=== PATIENT | female | born 1990 | race Caucasian/White ===

== ENCOUNTER 2017-07-05 11:15 | Inpatient (IN) | payer OTHER ==
[~2017-07-05 11:15] MED LIST: ELECTROLYTE-148 SOLN 500 ML IV SCH
[2017-07-05] MEDS ORDERED: ELECTROLYTE-148 SOLN 1,000 ML IV SCH ×2 (11:45→14:30)
[2017-07-05] MEDS ORDERED: TUBERCULIN PPD 5 TU/0.1ML SYRINGE (IN PATIENT USE ONLY) ID ONE (11:52)
[2017-07-05 12:13] VITALS: BMI 38.8
[2017-07-05 12:32] LABS: INR 0.94 (0.82-1.09); PROTHROMBIN TIME (PATIENT) 10.6 SEC (9.98-11.88)
[2017-07-05 12:33] LABS: MCH 21.9 pg (25.7-33.7); MCHC 30.9 g/dl (32.0-36.0); MEAN CELL VOLUME 70.8 fl (80-96); RDW 17.4 % (11.6-15.6); WHITE BLOOD COUNT 11.4 K/mm3 (4.0-10.0)
[2017-07-05 12:34] LABS: ACTIVATED PTT 25.7 SECONDS (26.9-34.4); BASOPHIL 0.2 % (0-2.0); EOSINOPHIL 1.2 % (0-4.5); MEAN PLT VOLUME 9.2 fl (7.5-11.1); NEUTROPHILS 71.7 % (42.8-82.8); PLATELET COUNT 361 K/MM3 (134-434)
[2017-07-05 12:39] LABS: ANION GAP 8 (8-16); CALCIUM 8.6 mg/dL (8.5-10.1); CO2 23 mmol/L (21-32); CREATININE 0.5 mg/dL (0.55-1.02); GLUCOSE,RANDOM 68 mg/dL (74-106)
[2017-07-05] MEDS ORDERED: FENTANYL/BUPIVACAINE/NS/PF - PCEA - 50 ML DISP.SYRIN EP SCH (13:15)
--- NOTE | 2017-07-05 14:10 | HP ---
Past Medical History - Primary Care Physician PCP:: Fatou Baldwin - Admission Chief Complaint: Labor History of Present Illness: 27 yo EDC 07/07/17 EGA 39.5 week with c/o labor. 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) Pulmonary: Yes: Asthma ...: 6 ...Para: 2 ...Term: 2 ...: 0 ...Spon : 3 ...Induced : 0 ...Multiple Gestation: 0 ...EDC by Sono: 07/07/17 Additional Medical History: Hx of chylamdia treated and varicose veins - Past Surgical History Past Surgical History: Yes: None Hx Myomectomy: No Hx Transabdominal Cerclage: No - Smoking History Smoking history: Never smoked Have you smoked in the past 12 months: No - Alcohol/Substance Use Hx Alcohol Use: No - Social History Usual Living Arrangement: Yes: With Spouse History of Recent Travel: No Home Medications - Allergies Allergies/Adverse Reactions: Allergies Allergy/AdvReac Type Severity Reaction Status Date / Time orange Allergy Severe Swelling Verified 07/05/17 11:55 - Home Medications Home Medications: Ambulatory Orders Ferrous Gluconate [Iron] 256 mg PO DAILY 07/05/17 Vit No.130/Iron/FA [ Vitamins] 1 each PO DAILY 07/05/17 Review of Systems - Review of Systems Constitutional: reports: No Symptoms Eyes: reports: No Symptoms HENT: reports: No Symptoms Neck: reports: No Symptoms Cardiovascular: reports: No Symptoms Respiratory: reports: No Symptoms Gastrointestinal: reports: Abdominal Pain Genitourinary: reports: No Symptoms Breasts: reports: No Symptoms Reported Musculoskeletal: reports: No Symptoms Integumentary: reports: No Symptoms Neurological: reports: No Symptoms Endocrine: reports: No Symptoms Hematology/Lymphatic: reports: No Symptoms Psychiatric: reports: No Symptoms Physical Exam - Maternity Vital Signs: Vital Signs Temperature Pulse Rate 79 07/05/17 12:00 Respiratory Rate 20 07/05/17 12:00 Blood Pressure 129/84 07/05/17 12:00 O2 Sat by Pulse Oximetry (%) Constitutional: Yes: Well Nourished, No Distress, Calm Neck: Yes: WNL Cardiovascular: Yes: WNL Lungs: Clear to auscultation Breast(s): Yes: WNL - Abdominal Exam/OB Fundal Height: 40 Number of Fetuses: Single Presentation: Vertex Contractions: Yes Regularity: Regular Intensity: Moderate Monitor Mode: External Category: I Accelerations: Non-Uniform Decelerations: None - Vaginal Exam/OB Dilatation (cm): 5-6 Effacement (%): 100 Amniotic Membrane Status: Intact Presentation: Vertex/Position Station: -1 - Physical Exam Musculoskeletal: Yes: WNL Extremities: Yes: WNL Edema: No - Labs Lab Results: CBC, BMP 07/05/17 11:40 07/05/17 11:40 Hemorrhage Risk Assessment - Risk Factors Risk Score: 0 Risk Level: Low Risk Problem List - Problems (1) Labor established Assessment/Plan: established labor Code(s): [id number] - Assessment/Plan IUP at 39.5 week GBS neg Cat 1 hx of Flores's Palsy active labor Plan admit to LD epidural given continue observation
--- NOTE | 2017-07-05 16:50 | PN ---
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
[2017-07-05] MEDS ORDERED: BENZOCAINE 28 GM HEMORRHOIDAL OINTMENT TP PRN (16:51)
[2017-07-05] MEDS ORDERED: WITCH HAZEL 50% (TUCKS) 40 PAD/JAR PAD TP PRN (16:51)
[2017-07-05] MEDS ORDERED: BISACODYL 10 MG SUPP.RECT RC PRN (16:51)
[2017-07-05] MEDS ORDERED: METHYLERGONOVINE MALEATE 0.2 MG/1 ML AMP IM PRN (16:51)
[2017-07-05] MEDS ORDERED: BENZOCAINE 20% 57 GM BOTTLE TP PRN (16:51)
[2017-07-05] MEDS ORDERED: OXYTOCIN 20 UNITS in 0.9% NS 20 UNIT/1,000 ML INFUS.BAG IV SCH (17:00)
[2017-07-05] MEDS: FERROUS SO4 325 MG TABLET (FP) PO SCH (18:26)
[2017-07-05] MEDS: IBUPROFEN 600 MG TABLET (FP) PO PRN (18:43)
[2017-07-05] MEDS: ACETAMINOPHEN 325 MG TABLET (FP) PO PRN (18:44)
[2017-07-06] MEDS: IBUPROFEN 600 MG TABLET (FP) PO PRN ×2 (03:40→18:23)
[2017-07-06] MEDS: ACETAMINOPHEN 325 MG TABLET (FP) PO PRN ×2 (03:40→18:23)
[2017-07-06 08:40] LABS: BASOPHIL 0.3 % (0-2.0); EOSINOPHIL 1.6 % (0-4.5); MCH 21.7 pg (25.7-33.7); MCHC 30.5 g/dl (32.0-36.0); MEAN CELL VOLUME 71.2 fl (80-96); MEAN PLT VOLUME 8.8 fl (7.5-11.1); NEUTROPHILS 69.1 % (42.8-82.8); PLATELET COUNT 307 K/MM3 (134-434); RDW 17.5 % (11.6-15.6); WHITE BLOOD COUNT 13.5 K/mm3 (4.0-10.0)
--- NOTE | 2017-07-06 09:20 | PN ---
Post Note - Post Date of Delivery: 07/05/17 Post Day: 1 Vital Signs: Vital Signs - 24 hr 07/05/17 07/05/17 07/05/17 12:00 13:20 13:25 Temperature Pulse Rate 79 90 89 Respiratory 20 17 17 Rate Blood Pressure 129/84 134/83 130/87 O2 Sat by Pulse 100 100 Oximetry (%) 07/05/17 07/05/17 07/05/17 13:30 13:45 14:00 Temperature 98.0 F Pulse Rate 84 90 102 H Respiratory 18 17 17 Rate Blood Pressure 127/81 135/91 95/29 O2 Sat by Pulse Oximetry (%) 07/05/17 07/05/17 07/05/17 14:15 14:30 14:45 Temperature Pulse Rate 78 84 95 H Respiratory 17 17 17 Rate Blood Pressure 118/76 122/69 124/77 O2 Sat by Pulse Oximetry (%) 07/05/17 07/05/17 07/05/17 15:00 15:15 15:30 Temperature Pulse Rate 85 91 H 94 H Respiratory 17 17 17 Rate Blood Pressure 117/79 126/72 133/96 O2 Sat by Pulse Oximetry (%) 07/05/17 07/05/17 07/05/17 15:45 16:00 16:15 Temperature Pulse Rate 104 H 99 H 111 H Respiratory 18 17 17 Rate Blood Pressure 136/93 139/86 110/62 O2 Sat by Pulse Oximetry (%) 07/05/17 07/05/17 07/05/17 16:45 17:00 17:15 Temperature 98.4 F Pulse Rate 109 H 95 H 88 Respiratory 18 18 18 Rate Blood Pressure 127/74 97/65 124/78 O2 Sat by Pulse Oximetry (%) 07/05/17 07/05/17 07/05/17 17:30 18:00 20:00 Temperature 99.2 F 98.7 F Pulse Rate 88 89 84 Respiratory 20 20 20 Rate Blood Pressure 124/78 142/81 141/74 O2 Sat by Pulse Oximetry (%) 07/06/17 07/06/17 01:27 05:48 Temperature 97.7 F 98.0 F Pulse Rate 92 H 93 H Respiratory 20 20 Rate Blood Pressure 134/79 135/79 O2 Sat by Pulse Oximetry (%) Labs: Laboratory Results - last 24 hr 07/05/17 07/05/17 07/05/17 11:40 11:40 11:40 WBC 11.4 H RBC 4.28 Hgb 9.4 L Hct 30.3 L MCV 70.8 L MCH 21.9 L MCHC 30.9 L RDW 17.4 H Plt Count 361 MPV 9.2 Neutrophils % 71.7 Lymphocytes % 18.2 Monocytes % 8.7 Eosinophils % 1.2 Basophils % 0.2 Retic Count PT with INR 10.60 INR 0.94 PTT (Actin FS) 25.7 L Sodium 139 Potassium 4.5 Chloride 108 H Carbon Dioxide 23 Anion Gap 8 BUN 5 L Creatinine 0.5 L Random Glucose 68 L Uric Acid Calcium 8.6 GGT AST ALT RPR Titer Blood Type Antibody Screen 07/05/17 07/05/17 07/05/17 11:40 11:40 11:40 WBC RBC Hgb Hct MCV MCH MCHC RDW Plt Count MPV Neutrophils % Lymphocytes % Monocytes % Eosinophils % Basophils % Retic Count PT with INR INR PTT (Actin FS) Sodium Potassium Chloride Carbon Dioxide Anion Gap BUN Creatinine Random Glucose Uric Acid Calcium GGT AST ALT RPR Titer Nonreactive Blood Type A POSITIVE A POSITIVE Antibody Screen Negative 07/05/17 07/05/17 07/06/17 17:00 17:00 08:00 WBC 13.5 H RBC 4.00 Hgb 8.7 L Hct 28.4 L MCV 71.2 L MCH 21.7 L MCHC 30.5 L RDW 17.5 H Plt Count 307 MPV 8.8 Neutrophils % 69.1 Lymphocytes % 22.6 D Monocytes % 6.4 Eosinophils % 1.6 Basophils % 0.3 Retic Count 1.71 H PT with INR INR PTT (Actin FS) Sodium Potassium Chloride Carbon Dioxide Anion Gap BUN Creatinine Random Glucose Uric Acid 4.0 Calcium GGT 15 AST 11 L ALT 10 L RPR Titer Blood Type Antibody Screen - Subjective Subjective: No Complaints - Objective Afebrile: Yes Breast: Not engorged Abdomen: Soft, Non-tender Uterus: Fundus firm Vagina: Scant lochia Extremities: Non-tender - Assessment/Plan (1) Labor established Assessment: S/P Normal Plan: Routine Care
[2017-07-06] MEDS: FERROUS SO4 325 MG TABLET (FP) PO SCH ×3 (09:23→16:57)
[2017-07-06] MEDS: PRENATAL VITAMINS W/ FOLIC ACID TABLET (FP) PO SCH (09:23)
[2017-07-07] MEDS: SENNOSIDES/DOCUSATE COMBO (SENNA PLUS) TABLET (UD) PO PRN ×2 (04:10→11:54)
[2017-07-07] MEDS: IBUPROFEN 600 MG TABLET (FP) PO PRN (04:11)
[2017-07-07] MEDS: ACETAMINOPHEN 325 MG TABLET (FP) PO PRN (04:11)
[2017-07-07] MEDS: FERROUS SO4 325 MG TABLET (FP) PO SCH ×2 (08:14→11:53)
[2017-07-07] MEDS: PRENATAL VITAMINS W/ FOLIC ACID TABLET (FP) PO SCH (09:10)
[2017-07-07 10:37] VITALS: BP 128/84; PULSE 83; TEMP 97.6
--- NOTE | 2017-07-07 10:49 | PN ---
Post Note - Post Date of Delivery: 07/05/17 Post Day: 2 Vital Signs: Vital Signs - 24 hr 07/06/17 07/07/17 21:15 10:00 Temperature 98.4 F 97.6 F Pulse Rate 84 83 Respiratory 20 18 Rate Blood Pressure 122/91 128/84 Labs: Laboratory Results - last 24 hr 07/05/17 17:00 Haptoglobin 188 - Subjective Subjective: No Complaints - Objective Breast: Not engorged Abdomen: Soft, Non-tender Uterus: Fundus firm Vagina: Scant lochia Extremities: Non-tender - Assessment/Plan (1) Labor established Assessment: S/P Normal Plan: Routine Care
--- NOTE | 2017-07-07 10:50 | DS ---
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 Vital Signs: Vital Signs Temperature 97.6 F 07/07/17 10:00 Pulse Rate 83 07/07/17 10:00 Respiratory Rate 18 07/07/17 10:00 Blood Pressure 128/84 07/07/17 10:00 O2 Sat by Pulse Oximetry (%) 100 07/05/17 13:25 Constitutional: Yes: Well Nourished, No Distress Neck: Yes: WNL Cardiovascular: Yes: WNL Respiratory: Yes: WNL Gastrointestinal: Yes: WNL, Normal Bowel Sounds, Soft ....Post : Yes: Uterus firm, Uterus non-tender Breast(s): Yes: WNL Musculoskeletal: Yes: WNL Extremities: Yes: WNL Integumentary: Yes: WNL Neurological: Yes: WNL, Alert, Oriented Labs: CBC, BMP 07/06/17 08:00 07/05/17 11:40 Delivery - Delivery Vaginal Delivery: No Problems Type of Anesthesia: Epidural Episiotomy/Laceration: None EBL (cc): 300 Delivery, Single - Stages of Labor Date 1st Stage Initiatied: 07/05/17 Time 1st Stage Initiated: 09:00 Date 2nd Stage Initiated: 07/05/17 Time 2nd Stage Initiated: 16:28 Date of Delivery: 07/05/17 Time of Delivery: 16:35 Time Placenta Delivered: 16:37 Placenta: Yes: Manual Removal - 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 You may walk unlimited jacqueline of and climb stairs. You may resume driving the car when you feel safe and comfortable behind the wheel. No sexual activity as instructed. Wound care If you have a bandage, leave it on, and keep dry for 48-72 hours. After that time discard the outer bandage. If they are tapes on the skin under the out of bandage leave them in place. They will peel off in the next 7 to 10 days. Do Not Peel them off. You may shower the day after surgery. If there are tapes present on the skin, you may shower over them. Diet There are no dietary restrictions. Eat healthy, high-fiber foods. Drink 6 to 8 glasses of liquid each day. This will assist in keeping your bowels are regular. Pain management You may take Tylenol or acetaminophen or Ibuprofen (for example, Motrin, Advil etc.) from my pain prescription medication is ordered should be taken as prescribed for moderate to severe pain. Call MD for any of the following: Severe pain not relieved by medication Fever of 101 or higher Excessive bleeding or drainage on dressing Inability to urinate Referrals: Fatou Baldwin MD [Staff Physician] - 1 Month (6 weeks) Disposition: HOME - Home Medications Comprehensive Discharge Medication List: Ambulatory Orders Ferrous Gluconate [Iron] 256 mg PO DAILY 07/05/17 Vit No.130/Iron/FA [ Vitamins] 1 each PO DAILY 07/05/17 Ibuprofen [Motrin -] 600 mg PO QID #28 tablet 07/06/17
== END 2017-07-07 13:30 | disposition home or self-care (01) | DRG 560 ==
LOC: JLDR 11:15 → J3W 18:00
PROVIDERS: ADMIT Obstetrics & Gynecology; ATTEND Obstetrics & Gynecology
PROC: 10E0XZZ Delivery of Products of Conception, External Approach (ICD-10-PCS; principal; 2017-07-05)
DX: O75.89 Other specified complications of labor and delivery (principal); J45.909 Unspecified asthma, uncomplicated; G51.0 Bell's palsy; Z3A.39 39 weeks gestation of pregnancy; Z37.0 Single live birth
CPT/HCPCS: 36415; 59409; 80048; 82977; 83010; 84450; 84460; 84550; 85025; 85044; 85610; 85730; 86593; 86850; 86900; 86901

== ENCOUNTER 2023-06-28 23:55 | Inpatient (IN) | payer OTHER ==
[2023-06-29] MEDS ORDERED: SODIUM CHLORIDE 1,000 ML IV STA (00:12)
[2023-06-29] MEDS ORDERED: ONDANSETRON 4 MG/2 ML VIAL IVPUSH ONE ×2 (00:12→03:37)
[2023-06-29] MEDS ORDERED: ONDANSETRON 4 MG/2 ML VIAL ONE ×2 (01:13→03:50)
[2023-06-29 01:39] LABS: BASO % 0.3 % (0-2.0); EOS % 0.5 % (0-4.5); HEMATOCRIT 32.1 % (32.4-45.2); HEMOGLOBIN 10.8 GM/dL (10.7-15.3); LYMPH % 14.1 % (8-40); MCH 29.2 pg (25.7-33.7); MCHC 33.6 g/dl (32.0-36.0); MEAN CELL VOLUME 87.1 fl (80-96); MEAN PLT VOLUME 8.9 fl (7.5-11.1); MONO % 8.6 % (3.8-10.2); NEUT % 76.5 % (42.8-82.8); PLATELET COUNT 338 10^3/uL (134-434); RBC 3.69 M/mm3 (3.60-5.2); RDW 14.2 % (11.6-15.6); WHITE BLOOD COUNT 9.6 K/mm3 (4.0-10.0)
[2023-06-29 02:07] LABS: CHLORIDE 108 mmol/L (98-107); SODIUM 134 mmol/L (136-145)
[2023-06-29 02:10] LABS: BLOOD UREA NITROGEN 4.2 mg/dL (7-18); CALCIUM 8.3 mg/dL (8.5-10.1); GLUCOSE,RANDOM 82 mg/dL (74-106); LIPASE 68 U/L (73-393)
[2023-06-29 02:13] LABS: CREATININE 0.6 mg/dL (0.55-1.3); SGOT/AST 55 U/L (15-37)
[2023-06-29 02:14] LABS: BILIRUBIN,TOTAL 0.4 mg/dL (0.2-1); TOT PROT 6.9 g/dl (6.4-8.2)
[2023-06-29 02:16] LABS: ALK PHOS 55 U/L (45-117)
[2023-06-29 02:28] LABS: ANION GAP 2 mmol/L (4-13); CO2 24 mmol/L (21-32); POTASSIUM > 10.0 mmol/L (3.5-5.1); SGPT/ALT 16 U/L (13-61)
[2023-06-29 02:58] LABS: HCG,QUALITATIVE URINE Positive
[2023-06-29 03:03] LABS: EPI CELLS 36 /uL (0-25.1); HYALINE CASTS 0 /uL (0-3.1); PH,URINE 8.5 (5.0-8.0); URINE APPEARANCE CLEAR; URINE BACTERIA 115 /uL (0-1359); URINE BILIRUBIN NEGATIVE (NEGATIVE); URINE COLOR YELLOW; URINE GLUCOSE (UA) NEGATIVE (NEGATIVE); URINE KETONE 1+ (NEGATIVE); URINE LEUK ESTERASE TRACE (NEGATIVE); URINE NITRITE NEGATIVE (NEGATIVE); URINE PROTEIN NEGATIVE (NEGATIVE); URINE RBC 5 /uL (0-23.9); URINE WBC 6 /uL (0-25.8)
[2023-06-29 04:02] LABS: POTASSIUM 3.6 mmol/L (3.5-5.1)
[2023-06-29 04:05] LABS: BLOOD UREA NITROGEN 3.7 mg/dL (7-18)
[2023-06-29 04:08] LABS: CREATININE 0.5 mg/dL (0.55-1.3)
[2023-06-29 04:09] LABS: BILIRUBIN,TOTAL 0.7 mg/dL (0.2-1)
[2023-06-29] MEDS: SODIUM CHLORIDE 1,000 ML IV SCH (08:59)
[2023-06-29] MEDS ORDERED: ENOXAPARIN NA (PORCINE) 40 MG/0.4 ML DISP.SYRIN SQ ONE (09:05)
[2023-06-29] MEDS: ENOXAPARIN NA (PORCINE) 40 MG/0.4 ML DISP.SYRIN SQ SCH (09:10)
[2023-06-29] MEDS ORDERED: AMPICILLIN NA/SULBACTAM NA 3 GM VIAL ONE ×2 (10:53→17:04)
[2023-06-29] MEDS: AMPICILLIN NA/SULBACTAM NA 3 GM in SODIUM CHLORIDE 100 ML IVPB SCH ×3 (11:01→17:11)
[2023-06-29 11:07] LABS: HEMATOCRIT 29.6 % (32.4-45.2); HEMOGLOBIN 9.8 GM/dL (10.7-15.3); MCH 29.1 pg (25.7-33.7); MCHC 33.1 g/dl (32.0-36.0); MEAN CELL VOLUME 87.9 fl (80-96); MEAN PLT VOLUME 8.9 fl (7.5-11.1); PLATELET COUNT 315 10^3/uL (134-434); RBC 3.37 M/mm3 (3.60-5.2); RDW 13.8 % (11.6-15.6); WHITE BLOOD COUNT 9.4 K/mm3 (4.0-10.0)
[2023-06-29 11:12] LABS: INR 1.34 (0.83-1.09); PROTHROMBIN TIME (PATIENT) 15.5 SEC (9.7-13.0)
[2023-06-29 11:14] LABS: ACTIVATED PTT 33.3 SECONDS (25.2-36.5)
[2023-06-29 11:24] LABS: POTASSIUM 3.7 mmol/L (3.5-5.1)
[2023-06-29 11:27] LABS: CALCIUM 8.1 mg/dL (8.5-10.1)
[2023-06-29 11:28] LABS: ALBUMIN 2.7 g/dl (3.4-5.0); MAGNESIUM 1.9 mg/dL (1.8-2.4)
[2023-06-29 11:31] LABS: PHOSPHOROUS 2.9 mg/dL (2.5-4.9)
[2023-06-29 11:32] LABS: BILIRUBIN,TOTAL 0.7 mg/dL (0.2-1); TOT PROT 5.6 g/dl (6.4-8.2)
[2023-06-29 11:36] LABS: CREATININE 0.5 mg/dL (0.55-1.3)
[2023-06-29] MEDS ORDERED: ACETAMINOPHEN 1000 MG/100 ML BAG IVPB PRN (20:19)
[2023-06-29] MEDS ORDERED: ACETAMINOPHEN INJECTION 100 ML IVPB ONE (20:22)
[2023-06-29] MEDS ORDERED: PROMETHAZINE HCL 25 MG/1 ML VIAL IVPB ONE (23:07)
[2023-06-29] MEDS ORDERED: PROMETHAZINE HCL 25 MG/1 ML VIAL ONE (23:13)
[2023-06-29] MEDS ORDERED: ACETAMINOPHEN 1000 MG/100 ML BAG IVPB ONE (23:16)
[2023-06-30 01:25] VITALS: BMI 29.2
[2023-06-30] MEDS: AMPICILLIN NA/SULBACTAM NA 3 GM in SODIUM CHLORIDE 100 ML IVPB SCH ×3 (02:11→17:34)
[2023-06-30] MEDS: SODIUM CHLORIDE 1,000 ML IV SCH (08:39)
[2023-06-30 09:48] LABS: HEMATOCRIT 28.5 % (32.4-45.2); HEMOGLOBIN 9.9 GM/dL (10.7-15.3); MCHC 34.9 g/dl (32.0-36.0); MEAN CELL VOLUME 85.8 fl (80-96); MEAN PLT VOLUME 9.2 fl (7.5-11.1); PLATELET COUNT 312 10^3/uL (134-434); RBC 3.32 M/mm3 (3.60-5.2); RDW 13.8 % (11.6-15.6); WHITE BLOOD COUNT 8.5 K/mm3 (4.0-10.0)
[2023-06-30 09:53] LABS: CHLORIDE 111 mmol/L (98-107); POTASSIUM 3.8 mmol/L (3.5-5.1); SODIUM 139 mmol/L (136-145)
[2023-06-30 10:13] LABS: ALBUMIN 2.6 g/dl (3.4-5.0); CALCIUM 8.1 mg/dL (8.5-10.1); GLUCOSE,RANDOM 81 mg/dL (74-106); MAGNESIUM 1.9 mg/dL (1.8-2.4)
[2023-06-30 10:16] LABS: BILIRUBIN,DIRECT 0.1 mg/dL (0.0-0.2); CREATININE 0.5 mg/dL (0.55-1.3); PHOSPHOROUS 2.7 mg/dL (2.5-4.9); SGOT/AST 10 U/L (15-37)
[2023-06-30 10:18] LABS: BILIRUBIN,TOTAL 0.5 mg/dL (0.2-1); TOT PROT 5.4 g/dl (6.4-8.2)
[2023-06-30 10:19] LABS: ALK PHOS 46 U/L (45-117)
[2023-06-30 10:20] LABS: ANION GAP 6 mmol/L (4-13); BLOOD UREA NITROGEN 2.1 mg/dL (7-18); CO2 22 mmol/L (21-32); SGPT/ALT 13 U/L (13-61)
[2023-06-30] MEDS: ENOXAPARIN NA (PORCINE) 40 MG/0.4 ML DISP.SYRIN SQ SCH (10:39)
[2023-06-30] MEDS ORDERED: ONDANSETRON 4 MG TABLET PO ONE (17:00)
[2023-07-01] MEDS: AMPICILLIN NA/SULBACTAM NA 3 GM in SODIUM CHLORIDE 100 ML IVPB SCH ×3 (02:28→18:04)
[2023-07-01] MEDS ORDERED: BUPIVACAINE HCL/PF 0.25% (2.5MG/ML) 10 ML VIAL ONE (09:15)
[2023-07-01] MEDS: ENOXAPARIN NA (PORCINE) 40 MG/0.4 ML DISP.SYRIN SQ SCH (09:45)
[2023-07-01] MEDS ORDERED: PROCHLORPERAZINE INJECTION 10 MG/2 ML VIAL IVPB PRN (11:10)
[2023-07-01] MEDS ORDERED: LIDOCAINE HCL/PF 2% SDV 5ML VIAL ONE (12:00)
[2023-07-01] MEDS ORDERED: FENTANYL CITRATE/PF 50 MCG/ML VIAL ONE ×5 (12:00→15:39)
[2023-07-01] MEDS ORDERED: PROPOFOL 20 ML ONE (12:00)
[2023-07-01] MEDS ORDERED: SUCCINYLCHOLINE CHLORIDE 200 MG/10 ML SYRINGE ONE ×2 (12:00→13:42)
[2023-07-01] MEDS ORDERED: ROCURONIUM BROMIDE 50 MG/5 ML SYRINGE ONE (12:01)
[2023-07-01] MEDS ORDERED: DEXAMETHASONE SOD PHOSPHATE 4 MG/1 ML VIAL ONE (12:33)
[2023-07-01] MEDS ORDERED: BUPIVACAINE HCL/PF 2.5 MG/ML - 30 ML VIAL IJ ONE (12:39)
[2023-07-01] MEDS ORDERED: LACTATED RINGERS SOLUTION 1,000 ML IV SCH ×2 (14:00→14:08)
[2023-07-01] MEDS ORDERED: oxyCODONE HCL 5 MG TABLET PO PRN (14:11)
[2023-07-01] MEDS ORDERED: ACETAMINOPHEN 1000 MG/100 ML BAG IVPB ONE ×2 (15:30→15:44)
[2023-07-01] MEDS ORDERED: ACETAMINOPHEN INJECTION 100 ML IVPB ONE (15:39)
[2023-07-01] MEDS ORDERED: FENTANYL CITRATE/PF 50 MCG/ML VIAL IVPUSH PRN (17:38)
[2023-07-01] MEDS: oxyCODONE HCL 5 MG TABLET PO PRN (18:14)
[2023-07-01] MEDS: PROCHLORPERAZINE INJECTION 10 MG/2 ML VIAL IVPB PRN (18:24)
[2023-07-01] MEDS: ACETAMINOPHEN 1000 MG/100 ML BAG IVPB SCH (20:29)
[2023-07-01] MEDS: DOCUSATE SODIUM 100 MG CAPSULE (FP) PO SCH (22:42)
[2023-07-02] MEDS: ACETAMINOPHEN 1000 MG/100 ML BAG IVPB SCH ×3 (01:29→12:58)
[2023-07-02] MEDS: AMPICILLIN NA/SULBACTAM NA 3 GM in SODIUM CHLORIDE 100 ML IVPB SCH ×2 (01:30→10:04)
[2023-07-02] MEDS: oxyCODONE HCL 5 MG TABLET PO PRN ×3 (06:40→13:21)
[2023-07-02] MEDS: PROCHLORPERAZINE INJECTION 10 MG/2 ML VIAL IVPB PRN (06:42)
[2023-07-02] MEDS: DOCUSATE SODIUM 100 MG CAPSULE (FP) PO SCH ×2 (06:43→13:02)
[2023-07-02 08:26] LABS: BASO % 0.1 % (0-2.0); HEMATOCRIT 28.3 % (32.4-45.2); HEMOGLOBIN 9.8 GM/dL (10.7-15.3); LYMPH % 11.5 % (8-40); MCH 29.7 pg (25.7-33.7); MCHC 34.8 g/dl (32.0-36.0); MEAN CELL VOLUME 85.3 fl (80-96); MEAN PLT VOLUME 9.4 fl (7.5-11.1); MONO % 6.8 % (3.8-10.2); NEUT % 81.6 % (42.8-82.8); PLATELET COUNT 312 10^3/uL (134-434); RBC 3.32 M/mm3 (3.60-5.2); RDW 13.7 % (11.6-15.6); WHITE BLOOD COUNT 14.1 K/mm3 (4.0-10.0)
[2023-07-02 08:45] LABS: CHLORIDE 109 mmol/L (98-107); POTASSIUM 3.6 mmol/L (3.5-5.1); SODIUM 137 mmol/L (136-145)
[2023-07-02 08:51] LABS: CALCIUM 8.7 mg/dL (8.5-10.1)
[2023-07-02 08:52] LABS: ALBUMIN 2.7 g/dl (3.4-5.0); ANION GAP 7 mmol/L (4-13); CO2 21 mmol/L (21-32); GLUCOSE,RANDOM 89 mg/dL (74-106)
[2023-07-02 08:54] LABS: BILIRUBIN,DIRECT 0.1 mg/dL (0.0-0.2)
[2023-07-02 08:55] LABS: CREATININE 0.5 mg/dL (0.55-1.3); SGOT/AST 36 U/L (15-37); SGPT/ALT 38 U/L (13-61)
[2023-07-02 08:56] LABS: BILIRUBIN,TOTAL 0.8 mg/dL (0.2-1)
[2023-07-02 08:57] LABS: TOT PROT 5.6 g/dl (6.4-8.2)
[2023-07-02 08:58] LABS: ALK PHOS 52 U/L (45-117)
[2023-07-02 09:00] LABS: BLOOD UREA NITROGEN 2.4 mg/dL (7-18)
[2023-07-02] MEDS ORDERED: ENOXAPARIN NA (PORCINE) 40 MG/0.4 ML DISP.SYRIN SQ SCH (10:00)
[2023-07-02 14:32] VITALS: BP 115/78; PULSE 82; RESP 20; TEMP 98.1
== END 2023-07-02 16:47 | disposition home or self-care (01) | DRG 951 ==
LOC: JER 23:55 → JERBED 06-29 02:44 → J7W 06-30 01:05 → OBSVTOIN 07-01 10:27
PROVIDERS: ADMIT Internal Medicine; ATTEND Internal Medicine
PROC: 0FT44ZZ Resection of Gallbladder, Percutaneous Endoscopic Approach (ICD-10-PCS; principal; 2023-07-02)
DX: O26.611 Liver and biliary tract disorders in pregnancy, first trimester (principal); G51.0 Bell's palsy; K80.00 Calculus of gallbladder with acute cholecystitis without obstruction; Z3A.01 Less than 8 weeks gestation of pregnancy; D64.9 Anemia, unspecified; J45.909 Unspecified asthma, uncomplicated; R11.2 Nausea with vomiting, unspecified; R10.11 Right upper quadrant pain
CPT/HCPCS: 36415; 76705-TC; 76817-TC; 76830-TC; 80048; 80053; 80076; 81003; 82550; 83690; 83735; 84100; 84703; 85025; 85027; 85610; 85730; 88304-TC; 93005; 93010; 94760; 99285-25; G0378

== ENCOUNTER 2023-07-03 07:59 | Emergency (ER) | payer OTHER ==
[2023-07-03 08:09] VITALS: BMI 29.2
[2023-07-03] MEDS ORDERED: SODIUM CHLORIDE 0.9% 500 ML INFUS.BAG IV ONE ×2 (08:50→14:24)
[2023-07-03] MEDS ORDERED: METOCLOPRAMIDE HCL INJECTION 10 MG/2 ML VIAL IVPB ONE (08:50)
[2023-07-03] MEDS ORDERED: ACETAMINOPHEN 1000 MG/100 ML BAG IVPB ONE (08:50)
[2023-07-03] MEDS ORDERED: METOCLOPRAMIDE HCL INJECTION 10 MG/2 ML VIAL ONE (08:54)
[2023-07-03] MEDS ORDERED: ACETAMINOPHEN INJECTION 100 ML IVPB ONE (08:54)
[2023-07-03 09:23] LABS: HEMATOCRIT 33.9 % (32.4-45.2); HEMOGLOBIN 11.1 GM/dL (10.7-15.3); MCH 28.9 pg (25.7-33.7); MCHC 32.7 g/dl (32.0-36.0); MEAN CELL VOLUME 88.2 fl (80-96); MEAN PLT VOLUME 9.4 fl (7.5-11.1); PLATELET COUNT 379 10^3/uL (134-434); RBC 3.85 M/mm3 (3.60-5.2); RDW 13.8 % (11.6-15.6); WHITE BLOOD COUNT 20.4 K/mm3 (4.0-10.0)
[2023-07-03 09:40] LABS: POTASSIUM 3.9 mmol/L (3.5-5.1)
[2023-07-03 09:41] LABS: CALCIUM 8.7 mg/dL (8.5-10.1)
[2023-07-03 09:42] LABS: BLOOD UREA NITROGEN 4.8 mg/dL (7-18)
[2023-07-03 09:45] LABS: CREATININE 0.6 mg/dL (0.55-1.3)
[2023-07-03 09:46] LABS: BILIRUBIN,TOTAL 0.7 mg/dL (0.2-1); TOT PROT 6.3 g/dl (6.4-8.2)
[2023-07-03 11:22] LABS: ANISOCYTOSIS 0
[2023-07-03 12:06] VITALS: RESP 16
[2023-07-03 12:15] LABS: EPI CELLS >36 /uL (0-25.1); HYALINE CASTS 1 /uL (0-3.1); URINE APPEARANCE CLEAR; URINE BACTERIA 4 /uL (0-1359); URINE BILIRUBIN NEGATIVE (NEGATIVE); URINE COLOR YELLOW; URINE GLUCOSE (UA) NEGATIVE (NEGATIVE); URINE KETONE 1+ (NEGATIVE); URINE LEUK ESTERASE NEGATIVE (NEGATIVE); URINE NITRITE NEGATIVE (NEGATIVE); URINE PROTEIN NEGATIVE (NEGATIVE); URINE RBC 70 /uL (0-23.9); URINE WBC 35 /uL (0-25.8)
[2023-07-03 13:54] VITALS: BP 130/80; PULSE 79; TEMP 99.3
[2023-07-03 14:43] LABS: BASO % 0.6 % (0-2.0); HEMATOCRIT 29.8 % (32.4-45.2); HEMOGLOBIN 10.1 GM/dL (10.7-15.3); LYMPH % 6.1 % (8-40); MCH 29.1 pg (25.7-33.7); MCHC 33.9 g/dl (32.0-36.0); MEAN CELL VOLUME 85.9 fl (80-96); MONO % 4.7 % (3.8-10.2); NEUT % 88.6 % (42.8-82.8); PLATELET COUNT 326 10^3/uL (134-434); RBC 3.47 M/mm3 (3.60-5.2); RDW 13.8 % (11.6-15.6)
== END 2023-07-03 19:08 | disposition home or self-care (01) ==
LOC: JER 07:59
PROC: 3E033NZ Introduction of Analgesics, Hypnotics, Sedatives into Peripheral Vein, Percutaneous Approach (ICD-10-PCS; principal; 2023-07-03)
PROC: 3E033GC Introduction of Other Therapeutic Substance into Peripheral Vein, Percutaneous Approach (ICD-10-PCS; 2023-07-03)
DX: O26.891 Other specified pregnancy related conditions, first trimester (principal); R10.9 Unspecified abdominal pain; R11.0 Nausea; O99.611 Diseases of the digestive system complicating pregnancy, first trimester; K59.00 Constipation, unspecified; O21.9 Vomiting of pregnancy, unspecified; Z3A.01 Less than 8 weeks gestation of pregnancy
CPT/HCPCS: 36415; 76705-TC; 76801-TC; 80053; 81003; 83690; 84702; 85025; 87086; 99284-25

== ENCOUNTER 2025-01-08 19:49 | Emergency (ER) | payer OTHER ==
[2025-01-08 20:03] VITALS: BP 130/81; PULSE 91; RESP 20; TEMP 98.2; BMI 30.5
[2025-01-08 21:12] LABS: ABSOLUTE IMMATURE GRANULOCYTES 0.03 x10^3/uL (0.0-0.031); BASOPHILS # 0.03 x10^3/uL (0.01-0.08); EOSINOPHIL % 2.5 % (0.7-5.8); EOSINOPHILS # 0.21 x10^3/uL (0.04-0.36); HEMATOCRIT 39.5 % (34.1-44.9); HEMOGLOBIN 12.4 g/dL (11.2-15.7); MCHC 31.4 g/dl (32.2-35.5); MEAN CELL VOLUME 89.4 fl (79.4-94.8); MEAN PLT VOLUME 10.3 fl (9.4-12.3); MONOCYTE # 0.65 x10^3/uL (0.24-0.86); MONOCYTE % 7.7 % (4.7-12.5); PLATELET COUNT 443 x10^3/uL (182-369); RDW 14.7 % (12.1-16.8)
[2025-01-08 21:14] LABS: PH,URINE 5.5 (5.0-8.0); URINE APPEARANCE CLEAR; URINE BILIRUBIN NEGATIVE (NEGATIVE); URINE COLOR YELLOW; URINE GLUCOSE (UA) NEGATIVE (NEGATIVE); URINE KETONE TRACE (NEGATIVE); URINE LEUK ESTERASE NEGATIVE (NEGATIVE); URINE NITRITE NEGATIVE (NEGATIVE); URINE PROTEIN NEGATIVE (NEGATIVE)
[2025-01-08 21:45] LABS: CHLORIDE 108 mmol/L (98-107); POTASSIUM 4.3 mmol/L (3.5-5.1); SODIUM 141 mmol/L (136-145)
[2025-01-08 21:47] LABS: ALBUMIN 3.7 g/dl (3.4-5.0); ANION GAP 6 mmol/L (4-13); BLOOD UREA NITROGEN 9.2 mg/dL (7-18); CALCIUM 9.5 mg/dL (8.5-10.1); CO2 27 mmol/L (21-32); GLUCOSE,RANDOM 80 mg/dL (74-106)
[2025-01-08 21:51] LABS: CREATININE 0.8 mg/dL (0.55-1.3); SGOT/AST 11 U/L (15-37); SGPT/ALT 18 U/L (13-61)
[2025-01-08 21:52] LABS: BILIRUBIN,TOTAL 0.6 mg/dL (0.2-1); TOT PROT 7.5 g/dl (6.4-8.2)
[2025-01-08 21:54] LABS: ALK PHOS 85 U/L (45-117)
[2025-01-08 22:31] LABS: HIV INTERPRETATION NEGATIVE (NEGATIVE)
[2025-01-08 22:32] LABS: HCV DIAGNOSTIC IN-HOUSE W/RFLX NON-REACTIVE (NONREACTIVE)
== END 2025-01-08 22:19 | disposition home or self-care (01) ==
LOC: JER 19:49
DX: N93.9 Abnormal uterine and vaginal bleeding, unspecified (principal); R10.2 Pelvic and perineal pain; M54.50 Low back pain, unspecified
CPT/HCPCS: 36415; 80053; 81003; 84702; 85025; 86803; 86850; 86900; 86901; 87077; 87086; 87389; 99283-25